=== PATIENT | male | born 1945 | race Caucasian/White ===

== ENCOUNTER 2017-11-17 15:17 | Outpatient (CLI) | payer MEDICARE, BC ==
[~2017-11-17] VITALS: Ht 162.6 cm; Wt 99.8 kg
[2017-11-17 15:55] LABS: TOTAL HEMOGLOBIN 16.9 G/dl (14.0-18.0)
[2017-11-17] MEDS ORDERED: albuterol 2.5 MG/3 ML nebule NEB PRN (16:15)
== END 2017-11-17 23:59 | disposition home or self-care (01) ==
LOC: RT 15:17
PROVIDERS: ATTEND Specialist
DX: Z01.818 Encounter for other preprocedural examination (principal); J44.9 Chronic obstructive pulmonary disease, unspecified; F17.210 Nicotine dependence, cigarettes, uncomplicated; Z79.899 Other long term (current) drug therapy
CPT/HCPCS: 85018; 94010; 94727; 94729